=== PATIENT | female | born 1940 | race Caucasian/White ===

== ENCOUNTER → 2017-11-22 | Outpatient (CLI) | payer MEDICARE ==
--- NOTE | 2017-11-22 13:56 | MM ---
Reason for exam: additional evaluation requested from prior study. Last mammogram was performed 1 year and 1 month ago. History: Patient is postmenopausal and has history of breast cancer at age 64. Family history of breast cancer in maternal grandmother at age 50. Benign right mammotome panel of the right breast, August 22, 2006. Malignant ultrasound-guided core biopsy of the left breast, October 21, 2004. Mastectomy of the left breast, 2003. Core biopsy of the left breast. Took estrogen for 10 years beginning at age 52. Took progesterone for 10 years beginning at age 52. Physical Findings: Nurse did not find any significant physical abnormalities on exam. MG 3D Diag Mammo W/Cad RT CC, MLO, and ML view(s) were taken of the right breast. Prior study comparison: October 27, 2016, right breast MG 3d diag mammo w/cad RT. October 22, 2015, right breast MG 3d diag mammo w/cad RT. There are scattered fibroglandular densities. Previous mammotome biopsy in the right breast. There is chronic nodularity in the right breast. No significant new findings when compared with previous films. These results were verbally communicated with the patient and result sheet given to the patient on 11/22/17. ASSESSMENT: Benign, BI-RAD 2 RECOMMENDATION: Follow-up diagnostic mammogram of the right breast in 1 year.
--- NOTE | 2017-11-22 15:20 | XR ---
EXAMINATION TYPE: XR chest 2V DATE OF EXAM: 11/22/2017 COMPARISON: 10/27/2016 INDICATION: Carcinoma upper outer quadrant left breast TECHNIQUE: Frontal and lateral views of the chest are obtained. FINDINGS: The heart size is normal. The pulmonary vasculature is normal. The lungs are clear. Osseous structures as visualized are unremarkable. IMPRESSION: 1. No suspicious acute changes. 2. No suspicious metastatic lesions identified.
== END ==
LOC: RADMAMWWP 12:41
PROVIDERS: ATTEND Internal Medicine Hematology & Oncology
DX: Z85.3 Personal history of malignant neoplasm of breast (principal); L03.119 Cellulitis of unspecified part of limb; I43 Cardiomyopathy in diseases classified elsewhere
CPT/HCPCS: 71046; 77065; G0279

== ENCOUNTER → 2019-01-16 | Outpatient (CLI) | payer MEDICARE ==
--- NOTE | 2019-01-16 13:57 | MM ---
Reason for exam: additional evaluation requested from prior study. Last mammogram was performed 1 year and 2 months ago. History: Patient is postmenopausal and has history of breast cancer at age 64. Family history of breast cancer in maternal grandmother at age 50. Benign right mammotome panel of the right breast, August 22, 2006. Malignant ultrasound-guided core biopsy of the left breast, October 21, 2004. Mastectomy of the left breast, 2003. Core biopsy of the left breast. Took estrogen for 10 years beginning at age 52. Took progesterone for 10 years beginning at age 52. Physical Findings: Nurse did not find any significant physical abnormalities on exam. MG 3D Diag Mammo W/Cad RT CC and MLO view(s) were taken of the right breast. Prior study comparison: November 22, 2017, right breast MG 3d diag mammo w/cad RT. October 27, 2016, right breast MG 3d diag mammo w/cad RT. There are scattered fibroglandular densities. Previous mammotome biopsy in the right breast. Stable 12 o'clock nodularity. Benign intrammary lymph nodes. No significant new findings when compared with previous films. These results were verbally communicated with the patient and result sheet given to the patient on 01/16/19. ASSESSMENT: Benign, BI-RAD 2 RECOMMENDATION: Follow-up diagnostic mammogram of the right breast in 1 year.
== END | disposition home or self-care (01) ==
LOC: RADMAMWWP 12:55
PROVIDERS: ATTEND Internal Medicine Hematology & Oncology
DX: Z08 Encounter for follow-up examination after completed treatment for malignant neoplasm (principal); Z85.3 Personal history of malignant neoplasm of breast; Z90.12 Acquired absence of left breast and nipple
CPT/HCPCS: 77065; G0279; 77061

== ENCOUNTER → 2019-01-16 | Outpatient (CLI) | payer MEDICARE ==
--- NOTE | 2019-01-16 15:41 | XR ---
EXAMINATION TYPE: XR chest 2V DATE OF EXAM: 01/16/2019 COMPARISON: Prior chest x-ray November 22, 2017 HISTORY: History of left-sided breast cancer with mastectomy. TECHNIQUE: Frontal and lateral views of the chest are obtained. FINDINGS: There is no focal air space opacity, pleural effusion, or pneumothorax seen. The cardiac silhouette size is stable and upper limits of normal. Multilevel spurring in the thoracic spine is re demonstrated..Left breast shadow is not visualized consistent with history of left-sided mastectomy. IMPRESSION: No suspicious acute pulmonary process. No significant change from prior.
== END | disposition home or self-care (01) ==
LOC: RADXRMAIN 14:07
PROVIDERS: ATTEND Internal Medicine Hematology & Oncology
DX: C50.412 Malignant neoplasm of upper-outer quadrant of left female breast (principal); L03.119 Cellulitis of unspecified part of limb; I43 Cardiomyopathy in diseases classified elsewhere; Z17.1 Estrogen receptor negative status [ER-]
CPT/HCPCS: 71046

== ENCOUNTER → 2020-05-09 | Outpatient (CLI) | payer MEDICARE ==
--- NOTE | 2020-05-09 12:04 | MM ---
Reason for exam: additional evaluation requested from prior study. Last mammogram was performed 1 year and 4 months ago. History: Patient is postmenopausal and has history of breast cancer at age 64. Family history of breast cancer in maternal grandmother at age 50. Benign right mammotome panel of the right breast, August 22, 2006. Malignant ultrasound-guided core biopsy of the left breast, October 21, 2004. Mastectomy of the left breast, 2003. Core biopsy of the left breast. Took estrogen for 10 years beginning at age 52. Took progesterone for 10 years beginning at age 52. Physical Findings: Nurse did not find any significant physical abnormalities on exam. MG 3D Diag Mammo W/Cad RT CC and MLO view(s) were taken of the right breast. Prior study comparison: January 16, 2019, right breast MG 3d diag mammo w/cad RT. November 22, 2017, right breast MG 3d diag mammo w/cad RT. There are scattered fibroglandular densities. Previous mammotome biopsy in the right breast. There is chronic nodularity in the right breast. No significant new findings when compared with previous films. These results were verbally communicated with the patient and result sheet given to the patient on 05/09/20. ASSESSMENT: Benign, BI-RAD 2 RECOMMENDATION: Routine screening mammogram of the right breast in 1 year. Manage on a clinical basis with regard to nipple sensitivity.
--- NOTE | 2020-05-09 12:37 | XR ---
EXAMINATION TYPE: XR chest 2V DATE OF EXAM: 05/09/2020 COMPARISON: 01/16/2019 HISTORY: Shortness of breath TECHNIQUE: Frontal and lateral views of the chest are obtained. FINDINGS: Scattered senescent parenchymal changes noted. Hyperinflation compatible with COPD. No evidence for infiltrate. No evidence for atelectasis. Heart size is stable. Mediastinal structures are stable and grossly unremarkable. No evidence for hilar prominence. Degenerative changes dorsal spine. IMPRESSION: 1. No evidence for acute pulmonary disease.
== END | disposition home or self-care (01) ==
LOC: RADMAMWWP 11:16
PROVIDERS: ATTEND Internal Medicine Hematology & Oncology
DX: Z08 Encounter for follow-up examination after completed treatment for malignant neoplasm (principal); I43 Cardiomyopathy in diseases classified elsewhere; L03.119 Cellulitis of unspecified part of limb; Z17.1 Estrogen receptor negative status [ER-]; Z85.3 Personal history of malignant neoplasm of breast
CPT/HCPCS: 71046; 77065; G0279; 77061

== ENCOUNTER → 2021-09-15 | Outpatient (CLI) | payer MEDICARE ==
--- NOTE | 2021-09-15 15:39 | BD ---
EXAMINATION TYPE: Axial Bone Density DATE OF EXAM: 09/15/2021 COMPARISON: 08/01/2015 CLINICAL HISTORY: Height: 61 IN Weight: 263 LBS RISK FACTORS HISTORY OF: Active: LIMITED Postmenopausal woman: AGE 50 Take estrogen and/or progesterone medications: NOT NOW How lon YEARS MEDICATIONS: Additional Medications: VIT D, SIMVASTATIN, METOPROLOL, PANTOPRAZOLE, ALLOPURINOL, VIT C, WARFARIN, Additional History: BREAST CANCER WITH CHEMO EXAM MEASUREMENTS: Bone mineral densitometry was performed using the [employer] System. Bone mineral density as measured about the Lumbar spine is: ----- L1-L4(G/cm2): 1.214 T Score Values are as follows: ----- L2: -0.2 ----- L3: 0.7 ----- L4: 0.9 ----- L1-L4: 0.3 Bone mineral density has: Decreased -9.2% since study of: 08/01/2015 Bone mineral density about the R hip (g/cm2): 0.975 Bone mineral density about the L hip (g/cm2): 1.075 T Score values are as follows: -----R Neck: -0.5 -----L Neck: 0.3 -----R Total: 0.1 -----L Total: 0.9 Bone mineral density has: Decreased -6.6% since study of: 08/01/2015 IMPRESSION: Normal (Values between +1 and -1 indicate normal bone mass). Consider repeating this study in 5 year s or sooner if there is some new clinical indication. NOTE: T-SCORE=SD OF THE YOUNG ADULT MEAN.
--- NOTE | 2021-09-17 14:19 | MM ---
Reason for exam: screening (asymptomatic). Last mammogram was performed 1 year and 4 months ago. History: Patient is postmenopausal and has history of breast cancer at age 64. Family history of breast cancer in sister at age 74 and breast cancer in maternal grandmother at age 50. Benign right mammotome panel of the right breast, August 22, 2006. Malignant ultrasound-guided core biopsy of the left breast, October 21, 2004. Mastectomy of the left breast, 2003. Core biopsy of the left breast. Took estrogen for 10 years beginning at age 52. Took progesterone for 10 years beginning at age 52. Physical Findings: A clinical breast exam by your physician is recommended on an annual basis and results should be correlated with mammographic findings. MG 3D Scr Mabel Unilateral W/Cad CC and MLO view(s) were taken of the right breast. Prior study comparison: May 09, 2020, right breast MG 3d diag mammo w/cad RT. January 16, 2019, right breast MG 3d diag mammo w/cad RT. There are scattered fibroglandular densities. Previous mammotome biopsy in the right breast. There is chronic nodularity in the right breast. Benign round, oil cyst, and secretory calcifications. No significant changes when compared with prior studies. ASSESSMENT: Benign, BI-RAD 2 RECOMMENDATION: Routine screening mammogram of the right breast in 1 year.
== END | disposition home or self-care (01) ==
LOC: RADMAMWWP 13:36
PROVIDERS: ATTEND Internal Medicine Hematology & Oncology
DX: Z12.31 Encounter for screening mammogram for malignant neoplasm of breast (principal); Z80.3 Family history of malignant neoplasm of breast; Z85.3 Personal history of malignant neoplasm of breast; Z78.0 Asymptomatic menopausal state
CPT/HCPCS: 77067; 77080

== ENCOUNTER → 2022-05-11 | Outpatient (CLI) | payer MEDICARE ==
--- NOTE | 2022-05-12 00:58 | XR ---
EXAMINATION TYPE: XR lumbosacral spine min 4V DATE OF EXAM: 05/11/2022 COMPARISON: CT dated May 2013 INDICATION: Low back pain TECHNIQUE: 5 views of the lumbar spine. FINDINGS: Osteopenia. Grade 1 anterolisthesis of L5 over S1 with severe bilateral L5-S1 facet osteoarthropathy. No definite vertebral body collapse or acute displaced fracture. Degenerative changes of lower thoracic and lumbar spine with multilevel opposing endplate osteophytos is and degenerative discs. Arterial atherosclerotic calcifications. IMPRESSION: Degenerative changes as described above. Further MRI assessment can be considered if clinically requi red.
== END | disposition home or self-care (01) ==
LOC: RADXRMAIN 15:24
PROVIDERS: ATTEND Internal Medicine
DX: M47.817 Spondylosis without myelopathy or radiculopathy, lumbosacral region (principal); M85.80 Other specified disorders of bone density and structure, unspecified site; M51.85 Other intervertebral disc disorders, thoracolumbar region; M47.815 Spondylosis without myelopathy or radiculopathy, thoracolumbar region; M25.78 Osteophyte, vertebrae
CPT/HCPCS: 72110

== ENCOUNTER → 2022-09-28 | Outpatient (CLI) | payer MEDICARE ==
--- NOTE | 2022-09-29 08:44 | MM ---
Reason for Exam: Screening (asymptomatic). Last screening mammogram was performed 12 month(s) ago. Patient History: Menarche at age 14. First Full-Term at age 31. Postmenopausal. Breast cancer, age 64. Estrogen for 10 years from age 52 until age 62. Progesterone for 10 years from age 52 until age 62. 2003, Mastectomy on the Left side. Core Biopsy on the Left side. 08/22/2006, Benign Core Biopsy on the right side. 10/21/2004, Malignant Ultrasound-Guided Core Biopsy on the left side. Maternal grandmother had breast cancer, age 50. Sister had breast cancer, age 74. Prior Study Comparison: 01/16/2019 Right Diagnostic Mammogram, [facility]. 05/09/2020 Right Diagnostic Mammogram, [facility]. 09/15/2021 Bilateral Screening Mammogram, [facility]. Tissue Density: Right: There are scattered fibroglandular densities. Findings: Analyzed By CAD. There is no suspicious group of microcalcifications or new suspicious mass in either breast. Overall Assessment: Negative, BI-RAD 1 Management: Screening Mammogram of both breasts in 1 year. A clinical breast exam by your physician is recommended on an annual basis and results should be correlated with mammographic findings. [facility] will attempt to contact patient to return for supplemental views and ultrasound if indicated. Electronically signed and approved by: Brad Goins DO
== END | disposition home or self-care (01) ==
LOC: RADMAMWWP 14:52
PROVIDERS: ATTEND Internal Medicine Hematology & Oncology
DX: Z12.31 Encounter for screening mammogram for malignant neoplasm of breast (principal); Z78.0 Asymptomatic menopausal state; Z80.3 Family history of malignant neoplasm of breast; Z90.12 Acquired absence of left breast and nipple
CPT/HCPCS: 77067

== ENCOUNTER → 2022-10-21 | Outpatient (CLI) | payer MEDICARE ==
--- NOTE | 2022-10-22 06:52 | US ---
EXAMINATION TYPE: US pelvis complete transvag DATE OF EXAM: 10/21/2022 COMPARISON: NONE CLINICAL HISTORY: N39.0 FREQ UTI R10.84 ABD PAIN. bleeding. TECHNIQUE: Transvaginal (TV) and Transabdominal (TA) . Transabdominal sonographic images of the pel vis were acquired. Transvaginal sonographic images were medically necessary to better assess the fol lowing anatomy: EXAM MEASUREMENTS: Uterus: 8.9 x 4.1 x 4.8 cm Endometrial Stripe: .8 cm 1. Uterus: Anteverted 4 cm hypoechoic area in cervix. 2. Endometrium: 4 mm fluid visualized. 3. Right Ovary: Obscured by overlying bowel gas 4. Left Ovary: Obscured by overlying bowel gas 5. Bilateral Adnexa: wnl 6. Posterior cul-de-sac: wnl Heterogeneous anteverted uterus. Suspect lobulated large debris-filled thin-walled nabothian cyst in the cervix. Tiny amount of simple free fluid in the lower endometrial canal. Poor visualization of en dometrial stripe suggests atrophy. No free fluid. Neither ovary seen. No adnexal masses noted. IMPRESSION: There is new 4.0 cm thin-walled cystic lesion in the cervix favoring debris filled naboth kanchan cyst. Advise obstetrical evaluation. Tiny amount of nonsimple fluid in the endometrial canal.
--- NOTE | 2022-10-22 06:55 | US ---
EXAMINATION TYPE: US kidneys/renal and bladder DATE OF EXAM: 10/21/2022 COMPARISON: CT abdomen and pelvis 2012 CLINICAL HISTORY: R10.84,N39.0. hematuria EXAM MEASUREMENTS: Right Kidney: 10.3 x 4.2 x 3.5 cm Left Kidney: 10.2 x 4.6 x 3.5 cm Right Kidney: No hydronephrosis or masses seen Left Kidney: No hydronephrosis or masses seen Bladder: anechoic not fully distended. Bilateral Jets seen: No There is no evidence for hydronephrosis at this point in time. No nephrolithiasis is seen. No constance s are identified. The urinary bladder is not greatly distended. IMPRESSION: Source of hematuria not identified. If symptoms persist further investigation with CT uro gram would be warranted.
== END | disposition home or self-care (01) ==
LOC: RADUSWWP 14:35
PROVIDERS: ATTEND Internal Medicine
DX: N88.8 Other specified noninflammatory disorders of cervix uteri (principal); N39.0 Urinary tract infection, site not specified; R31.9 Hematuria, unspecified; Z87.440 Personal history of urinary (tract) infections; Z90.722 Acquired absence of ovaries, bilateral
CPT/HCPCS: 76770; 76830; 76856

== ENCOUNTER → 2022-12-02 | Outpatient (CLI) | payer MEDICARE ==
[2022-12-02 21:19] LABS: Basophils # (A) 0.04 X 10*3/uL (0.00-0.10); Basophils % (A) 0.7 %; Eosinophils # (A) 0.14 X 10*3/uL (0.04-0.35); Eosinophils % (A) 2.4 %; HCT 45.8 % (37.2-46.3); HGB 14.1 g/dL (12.0-15.0); Immature Grans, Automated 0.5 %; Lymphocytes % (A) 27.5 %; MCH 29.6 pg (27.0-32.0); MCHC 30.8 g/dL (32.0-37.0); MCV 96.2 fL (80.0-97.0); Mean Platelet Volume 10.8 fL (9.5-12.2); Monocytes # (A) 0.64 X 10*3/uL (0.20-1.00); NRBC Per 100 WBC 0 /100 WBCS (0.0-0.0); Neutrophils # (A) 3.37 X 10*3/uL (1.80-7.70); Neutrophils % (A) 57.9 %; Platelet Count 224 X 10*3/uL (140-440); RBC 4.76 X 10*6/uL (4.10-5.20); RDW 13.2 % (11.5-14.5); WBC 5.82 X 10*3/uL (4.50-10.00)
== END | disposition home or self-care (01) ==
LOC: LABWHC1 12:54
PROVIDERS: ATTEND Obstetrics & Gynecology
DX: Z01.812 Encounter for preprocedural laboratory examination (principal)
CPT/HCPCS: 36415; 85025

== ENCOUNTER 2022-12-10 10:57 | Day surgery (SDC) | payer MEDICARE ==
--- NOTE | 2022-12-09 19:30 | P.HPOB ---
History of Present Illness H&P Date: 12/09/22 Chief Complaint: Postmenopausal bleeding, endometrial thickening on ultrasound This is an 82 y.o. female, 5, para 3, who presents for dilatation and curettage with hysteroscopy due to postmenopausal bleeding and endometrial thickening. She had a cortisone shot in her knee about 3 months ago and then about 2 months ago she felt a pressure-like feeling over her bladder. She woke up with vaginal bleeding. It only happened one time. She had been treated for presumptive UTI by tele-medicine visit. Pelvic ultrasound showed uterus measuring 8.9 x 4.1 x 4.9 cm with endometrial thickness of 0.8 cm and a 4 mm fluid collection, neither ovary was visualized. The bleeding has resolved. OB Hx: . History of 3 sections and 2 miscarriages. Jewel Waxer Hx: No history of STDs Social Hx: . Retired. Review of Systems Constitutional: Denies chills, Denies fever Eyes: denies blurred vision, denies pain Ears, nose, mouth and throat: Denies headache, Denies sore throat Cardiovascular: Denies chest pain, Denies shortness of breath Respiratory: Denies cough Gastrointestinal: Denies abdominal pain, Denies diarrhea, Denies nausea, Denies vomiting Genitourinary: Reports abnormal vaginal bleeding, Denies pelvic pain Menstruation: Reports postmenopausal Musculoskeletal: Reports low back pain, Reports myalgias Musculoskeletal: right: ankle swelling Integumentary: Denies pruritus, Denies rash Neurological: Denies numbness, Denies weakness Psychiatric: Denies anxiety, Denies depression Endocrine: Denies fatigue, Denies weight change Past Medical History Past Medical History: Atrial Flutter, Cancer, GERD/Reflux, Osteoarthritis (OA) Additional Past Medical History / Comment(s): gout, Dr Coulter told pt she is on metoprolol and simvastatin for heart issues not BP or Cholesterol. urinary leakage wears poise. minor knee arthritis ( [place]) hx breast cancer. wears compression stockings for lower leg edema control. recent vaginal bleeding. History of Any Multi-Drug Resistant Organisms: None Reported Past Surgical History: Ablation (cardiac), Section (x3), Tubal Ligation Additional Past Surgical History / Comment(s): colonoscopy, left mastectomy 2003; surgery for pyloric stenosis Past Anesthesia/Blood Transfusion Reactions: No Reported Reaction Past Psychological History: No Psychological Hx Reported Smoking Status: Former smoker Past Alcohol Use History: Occasional Past Drug Use History: None Reported - Past Family History Mother Family Medical History: Congestive Heart Failure (CHF) Father Additional Family Medical History / Comment(s): parkinsons Sister(s) Additional Family Medical History / Comment(s): MS Medications and Allergies Home Medications Medication Instructions Recorded Confirmed Type ALPRAZolam [Xanax] 0.25 mg PO DAILY PRN 12/07/22 12/10/22 History Lactulose 10 - 20 gm PO DAILY 12/07/22 12/10/22 History Metoprolol Succinate [Metoprolol 25 mg PO HS 12/07/22 12/10/22 History Succinate ER] Pantoprazole [Protonix] 40 mg PO DAILY 12/07/22 12/10/22 History Simvastatin [Zocor] 20 mg PO HS 12/07/22 12/10/22 History Unk Vitamin C 1 tab PO DAILY 12/07/22 12/10/22 History Unk Vitamin D3 1 tab PO DAILY 12/07/22 12/10/22 History Warfarin [Coumadin] 2.5 mg PO DAILY 12/07/22 12/10/22 History Warfarin [Coumadin] 2.5 mg PO WEEKLY 12/07/22 12/10/22 History allopurinoL 300 mg PO DAILY 12/07/22 12/10/22 History Allergies Allergy/AdvReac Type Severity Reaction Status Date / Time No Known Allergies Allergy Verified 12/10/22 11:30 Exam Osteopathic Statement: *. No significant issues noted on an osteopathic structural exam other than those noted in the History and Physical/Consult. HEENT: within normal limits Heart: regular rate and rhythm Lungs: clear to auscultation bilaterally Abdomen: soft, non-tender Pelvic: uterus small, anteverted, non-tender, no adnexal masses or tenderness noted Extremities: neg. Kareen's Assessment and Plan (1) Postmenopausal bleeding Current Visit: No Status: Acute Code(s): N95.0 - POSTMENOPAUSAL BLEEDING SNOMED Code(s): 51500510 (2) Endometrial thickening on ultrasound Current Visit: No Status: Acute Code(s): R93.89 - ABNORMAL FINDINGS ON DX IMAGING OF OTH BODY STRUCTURES SNOMED Code(s): 705096879 Plan: Proceed with dilatation and curettage with hysteroscopy. I have discussed the risks, benefits, and alternative therapies for the above- mentioned procedure and for both sedation/anesthesia as well as necessary blood products administration, if indicated, as they pertain to this patient. The patient has indicated her understanding and acceptance of the risks and procedures discussed.
[~2022-12-10 10:57] MED LIST: DEXAMETHASONE SOD PHOSPHATE 4 MG/ML 1 ML VIAL IV ONE; HYDROmorphone 0.5 MG/0.5 ML SYRINGE IVP PRN; LACTATED RINGERS 1,000 ML IV SCH; LIDOCAINE 1% (10MG/ML) FOR IV START INTRADERMA PRN; ONDANSETRON 4 MG/2 ML VIAL IVP ONE; Pre Op ABX Message 1 EACH MISC MISCELLANE ONE
[2022-12-10 12:01] LABS: Glucose,Whole Blood 105 mg/dL (70-110)
[2022-12-10] MEDS ORDERED: fentaNYL (PF) 50 MCG/ML 2 ML AMP ONE (12:40)
[2022-12-10] MEDS ORDERED: LIDOCAINE 2% INJ 20 MG/ML (2 ML VIAL) ONE (12:40)
[2022-12-10] MEDS ORDERED: PROPOFOL 10 MG/ML 20 ML VIAL IV ONE (12:40)
[2022-12-10] MEDS ORDERED: MIDAZOLAM 2 MG/2 ML VIAL ONE (12:40)
[2022-12-10] MEDS ORDERED: SUCCINYLCHOLINE CHLORIDE 200 MG/10 ML VIAL IV ONE (12:40)
--- NOTE | 2022-12-10 13:10 | P.OP ---
Date of Procedure: 12/10/22 Preoperative Diagnosis: Postmenopausal bleeding Endometrial thickening on ultrasound Postoperative Diagnosis: Same Procedure(s) Performed: Dilation and curettage with hysteroscopy Anesthesia: ELIZABETH Surgeon: Karmen Marcos Estimated Blood Loss (ml): 10 Pathology: other (Endometrial curettings) Condition: stable Disposition: same day Indications for Procedure: This is an 82 y.o. female, 5, para 3, who presents for dilatation and curettage with hysteroscopy due to postmenopausal bleeding and endometrial thickening. She had a cortisone shot in her knee about 3 months ago and then about 2 months ago she felt a pressure-like feeling over her bladder. She woke up with vaginal bleeding. It only happened one time. She had been treated for presumptive UTI by tele-medicine visit. Pelvic ultrasound showed uterus measuring 8.9 x 4.1 x 4.9 cm with endometrial thickness of 0.8 cm and a 4 mm fluid collection, neither ovary was visualized. The bleeding has resolved. Operative Findings: Uterus is anteverted with no adnexal masses palpated. Cervical os is slightly stenotic. Brownish discharge is noted at the cervical os. Uterus is sounded to 9 cm. Irregular contour with questionable submucosal fibroid versus polyp is noted on hysteroscopy. Dark brown blood and clot are noted. Minimal endometrial curettings are obtained. Description of Procedure: The patient is taken to the operating room where she is placed in the dorsal lithotomy position. She is prepped and draped in the normal sterile fashion. Her bladder is drained with a catheter. Examination is performed under anesthesia. Uterus is found to be anteverted with no adnexal masses palpated. Next a weighted speculum was placed in the patient's vagina. A right angle retractor was used to visualize the cervix. The anterior lip of the cervix is grasped with a single-tooth tenaculum. Cervical os is noted to be stenotic. It is slightly dilated with a Rene dilator until a sound could be placed. Uterus is sounded to 9 cm. Cervix is then gently dilated further until a hysteroscope could be passed. Hysteroscopy was performed using normal saline. The above- noted findings were made and pictures are taken. Next a polyp forceps was introduced with no tissue obtained. Next a medium-size sharp curet was introduced and sharp curettage was performed until a gritty texture was noted. Irregular contour was palpated consistent with possible submucosal fibroid. Minimal tissue was obtained. Single-tooth tenaculum is removed. Specimens removed from the field. The speculum is removed. Sponge and needle counts are correct. The patient is taken to recovery room in stable condition.
[2022-12-10 13:23] VITALS: TEMP 97.7
[2022-12-10 13:36] VITALS: RESP 16
[2022-12-10 14:55] VITALS: BP 155/85; PULSE 70
== END 2022-12-10 16:15 | disposition home or self-care (01) ==
LOC: OR 10:57
PROVIDERS: ATTEND Obstetrics & Gynecology
DX: N84.0 Polyp of corpus uteri (principal); R93.89 Abnormal findings on diagnostic imaging of other specified body structures; N95.0 Postmenopausal bleeding; Z98.890 Other specified postprocedural states; I48.92 Unspecified atrial flutter; K21.9 Gastro-esophageal reflux disease without esophagitis; M19.90 Unspecified osteoarthritis, unspecified site; M10.9 Gout, unspecified; Z79.899 Other long term (current) drug therapy; Z79.02 Long term (current) use of antithrombotics/antiplatelets; Z98.51 Tubal ligation status; Z90.12 Acquired absence of left breast and nipple; Z87.891 Personal history of nicotine dependence; F10.20 Alcohol dependence, uncomplicated; Z82.49 Family history of ischemic heart disease and other diseases of the circulatory system; Z82.69 Family history of other diseases of the musculoskeletal system and connective tissue; Z82.0 Family history of epilepsy and other diseases of the nervous system; Z79.01 Long term (current) use of anticoagulants; Z79.1 Long term (current) use of non-steroidal anti-inflammatories (NSAID); I10 Essential (primary) hypertension; E78.5 Hyperlipidemia, unspecified
CPT/HCPCS: 88305; 58558; J2250; J0330; J1100; J2405; J3010; J2704; J2001

== ENCOUNTER → 2023-09-29 | Outpatient (CLI) | payer MEDICARE ==
--- NOTE | 2023-09-29 14:30 | MM ---
Reason for Exam: Additional evaluation requested from prior study. Last screening mammogram was performed 12 month(s) ago. Patient History: Menarche at age 14. First Full-Term at age 31. Postmenopausal. Breast cancer, left, age 64. Estrogen for 10 years from age 52 until age 62. Progesterone for 10 years from age 52 until age 62. 2003, Mastectomy on the Left side. Core Biopsy on the Left side. 08/22/2006, Benign Core Biopsy on the right side. 10/21/2004, Malignant Ultrasound-Guided Core Biopsy on the left side. Maternal grandmother had breast cancer, age 50. Sister had breast cancer, age 74. Prior Study Comparison: 05/09/2020 Right Diagnostic Mammogram, [facility]. 09/15/2021 Bilateral Screening Mammogram, [facility]. 09/28/2022 Right MG 3D screening mammo w/cad, [facility]. Tissue Density: Right: There are scattered fibroglandular densities. Findings: Analyzed By CAD. Pattern appears stable. Scattered benign punctate and linear calcifications are present. Core markers within the anterior right breast. No suspicious groups of microcalcifications, spiculated or lobular masses, architectural distortion or other secondary signs of malignancy are mammographically apparent. Overall Assessment: Benign, BI-RAD 2 Management: Screening Mammogram of the right breast in 1 year. A negative mammogram report should not preclude additional follow up of suspicious palpable abnormalities. Patient should continue monthly self breast exam. A clinical breast exam by your physician is recommended on an annual basis and results should be correlated with mammographic findings. Electronically signed and approved by: Praful Winston D.O. Radiologis
--- NOTE | 2023-10-03 12:19 | BD ---
EXAMINATION TYPE: Axial Bone Density DATE OF EXAM: 09/29/2023 CLINICAL HISTORY: 83 years old Female. ICD-10 CODE: [id number], CARCINOMA OF UPPER OUTER QUAD L BREAST, I890, Z171, Height: 67in Weight: 261lb FRAX RISK QUESTIONS: Secondary Osteoporosis: RISK FACTORS HISTORY OF: Family History of Osteoporosis: yes Active: limited Postmenopausal woman: yes Take estrogen and/or progesterone medications: in the past, none current How long: about 10 years MEDICATIONS: Additional Medications: vitamin d Additional History: breast cancer EXAM MEASUREMENTS: Bone mineral densitometry was performed using the [employer] System. Bone mineral density as measured about the Lumbar spine is: ----- L1-L4(G/cm2): 1.204 T Score Values are as follows: ----- L1: -0.7 ----- L2: 0.0 ----- L3: 0.4 ----- L4: 0.7 ----- L1-L4: 0.2 Z Score Values are as follows: ----- L1: 0.0 ----- L2: 0.7 ----- L3: 1.1 ----- L4: 1.4 ----- L1-L4: 0.9 Bone mineral density has: Decreased -0.8% since study of: 09-15-2021 Bone mineral density about the R hip (g/cm2): 0.984 Bone mineral density about the L hip (g/cm2): 1.114 T Score values are as follows: -----R Neck: -0.5 -----L Neck: 0.0 -----R Total: -0.2 -----L Total: 0.8 Z Score values are as follows: -----R Neck: 1.0 -----L Neck: 1.5 -----R Total: 1.1 -----L Total: 2.1 Bone mineral density has: Decreased -2% since study of: 09-15-2021 FRAX%s: The graph provided illustrates a 8.7% chance for a major osteoporotic fx and a 1.4% chance fo r the hips probability for fx in 10 years time. IMPRESSION: Normal (Values between +1 and -1 indicate normal bone mass). Consider repeating this study in 5 year s or sooner if there is some new clinical indication. NOTE: T-SCORE=SD OF THE YOUNG ADULT MEAN.
== END | disposition home or self-care (01) ==
LOC: RADMAMWWP 14:04
PROVIDERS: ATTEND Internal Medicine Hematology & Oncology
DX: C50.412 Malignant neoplasm of upper-outer quadrant of left female breast (principal); R92.321 Mammographic fibroglandular density, right breast; I89.0 Lymphedema, not elsewhere classified; I43 Cardiomyopathy in diseases classified elsewhere; I10 Essential (primary) hypertension; E78.5 Hyperlipidemia, unspecified; Z80.3 Family history of malignant neoplasm of breast; Z71.3 Dietary counseling and surveillance; Z17.1 Estrogen receptor negative status [ER-]; Z78.0 Asymptomatic menopausal state
CPT/HCPCS: 77080; 77065; G0279; 77061

== ENCOUNTER → 2024-10-15 | Outpatient (CLI) | payer MEDICARE ==
--- NOTE | 2024-10-16 11:12 | MM ---
Reason for Exam: Hx of breast cancer, conservation therapy. Last mammogram was performed 1 year(s) and 1 month(s) ago. Patient History: Menarche at age 14. First Full-Term at age 31. Postmenopausal. Breast cancer, left, age 64. Estrogen for 10 years from age 52 until age 62. Progesterone for 10 years from age 52 until age 62. 2003, Mastectomy on the Left side. Core Biopsy on the Left side. 08/22/2006, Benign Core Biopsy on the right side. 10/21/2004, Malignant Ultrasound-Guided Core Biopsy on the left side. Maternal grandmother had breast cancer, age 50. Sister had breast cancer, age 74. Prior Study Comparison: 09/15/2021 Bilateral Screening Mammogram, [facility]. 09/28/2022 Right MG 3D screening mammo w/cad, [facility]. 09/29/2023 Right MG 3D diag mammo w/cad RT, [facility]. Tissue Density: Right: There are scattered areas of fibroglandular density. Findings: Analyzed By CAD. Redemonstrated benign secretory and oil cyst calcifications. Microclip anterior right breast from prior biopsy. Unchanged asymmetric density central right cc view anterior to middle depth. Multiple moles are again noted. No significant change from prior exams. Overall Assessment: Benign, BI-RAD 2 Management: Screening Mammogram of the right breast in 1 year. Results were given to the patient verbally at the time of exam. Patient should continue monthly self-breast exams. A clinical breast exam by your physician is recommended on an annual basis. This exam should not preclude additional follow-up of suspicious palpable abnormalities. [facility], , 10/15/2024 2:08 PM. Electronically signed and approved by: Mona Esquivel M.D. Radiologist
== END | disposition home or self-care (01) ==
LOC: RADMAMWWP 13:40
PROVIDERS: ATTEND Internal Medicine Hematology & Oncology
DX: I89.0 Lymphedema, not elsewhere classified (principal); I43 Cardiomyopathy in diseases classified elsewhere; Z17.1 Estrogen receptor negative status [ER-]; C50.912 Malignant neoplasm of unspecified site of left female breast; Z78.0 Asymptomatic menopausal state; Z80.3 Family history of malignant neoplasm of breast; R92.321 Mammographic fibroglandular density, right breast; Z85.3 Personal history of malignant neoplasm of breast
CPT/HCPCS: 77065; G0279; 77061